=== PATIENT | female | born 1965 | race Caucasian/White ===

== ENCOUNTER 2017-01-30 21:35 | Emergency (ER) | payer MEDICARE, OTHER ==
[~2017-01-30] VITALS: Ht 162.6 cm; Wt 113.6 kg
[~2017-01-30 21:35] MED LIST: DIVA500T35 PO; ENAL20 PO; ESCI10TA PO; FLUP10 PO; GABA-531 PO; INSLAN SQ; INSREG SQ; LEVO100T4 PO; LOXA25 PO; OLAN10TA3 PO; RISPC50 IM; TOLT2TAB2 PO; VIST50 PO
[2017-01-31] MEDS ORDERED: INSULIN REGULAR, HUMAN 100 UNITS/ML IVP ONE ×2 (00:15→01:15)
[2017-01-31] MEDS ORDERED: SODIUM CHLORIDE 0.9% 2,000 ML IV ONE (00:15)
[2017-01-31 00:45] LABS: BASOPHILS % (AUTO) 0.3 % (0.0-2.0); EOSINOPHILS % (AUTO) 2.8 % (1.0-6.0); HEMATOCRIT 34.4 % (36-46); HEMOGLOBIN 11.9 g/dL (12.0-16.0); LYMPHOCYTES % (AUTO) 44.8 % (22.0-44.0); MEAN CORPUSCULAR HEMOGLOBIN 29.6 pg (26.0-34.0); MEAN CORPUSCULAR HGB CONC 34.6 G/dL (31.0-37.0); MEAN CORPUSCULAR VOLUME 86 fL (80-100); MONOCYTES # (AUTO) 0.5 K/uL (0.1-1.0); MONOCYTES % (AUTO) 7.8 % (2.0-9.0); NEUTROPHILS % (AUTO) 44.3 % (40.0-70.0); PLATELET COUNT (AUTO) 185 K/uL (150-450); RED BLOOD CELL COUNT(AUTO) 4.02 MIL/uL (4.00-5.20); RED CELL DISTRIBUTION WIDTH 13.2 % (11.5-14.5); WHITE BLOOD COUNT (AUTO) 6.8 K/uL (4.5-11.0)
[2017-01-31 00:57] LABS: ALANINE AMINOTRANSFERASE 16 U/L (12-78); ANION GAP 7 mmol/L (8-16); ASPARTATE AMINOTRANSFERASE < 5 U/L (15-37); BILIRUBIN,TOTAL 0.3 mg/dL (0.1-1.0); CALCIUM, TOTAL 8.2 mg/dL (8.8-10.5); CARBON DIOXIDE 31 mmol/L (22-29); CHLORIDE 96 mmol/L (98-107); CREATININE 1.38 mg/dL (0.60-1.30); GLOMERULAR FILTR. RATE CALC 40 mL/min (>60); POTASSIUM 4.5 mmol/L (3.5-5.1); SODIUM SERUM 134 mmol/L (136-145); TOTAL PROTEIN, SERUM 6.4 g/dL (6.4-8.2); UREA NITROGEN, BLOOD 17 mg/dL (7-18)
[2017-01-31 01:37] LABS: GLUCOSE,POINT OF CARE 336 MG/DL (70-110)
[2017-01-31 01:41] LABS: APPEARANCE,URINE CLEAR (CLEAR); GLUCOSE, URINE (UA) >=1000 mg/dL (NEGATIVE); KETONES,URINE NEGATIVE (NEGATIVE); LEUKOCYTE ESTERASE ,URINE NEGATIVE (NEGATIVE); OCCULT BLOOD,URINE NEGATIVE (NEGATIVE); PH,URINE 5.5 (5.0-8.0); PROTEIN,URINE NEGATIVE (NEGATIVE)
[2017-01-31 01:54] LABS: SQUAMOUS EPITHELIAL CELL,UR Few /LPF (None Seen)
[2017-01-31 01:56] LABS: RBC,URINE None Seen /HPF (0-2); WBC,URINE None Seen /HPF (0-5)
[2017-01-31 02:12] LABS: GLUCOSE,POINT OF CARE 291 MG/DL (70-110)
[2017-01-31 02:29] VITALS: BP 122/79
== END 2017-01-31 02:39 | disposition home or self-care (01) ==
LOC: EMS 21:38
DX: E11.65 Type 2 diabetes mellitus with hyperglycemia (principal); I10 Essential (primary) hypertension; E03.9 Hypothyroidism, unspecified; K21.9 Gastro-esophageal reflux disease without esophagitis; Z79.4 Long term (current) use of insulin
CPT/HCPCS: 36415; 80053; 80307; 81001; 82009; 82962; 83690; 84484; 85025; 93005; 96374; 96376; 99285; G0480; J1815; J7030

== ENCOUNTER 2017-03-13 15:59 | Emergency (ER) | payer MEDICARE, OTHER ==
[~2017-03-13] VITALS: Ht 162.6 cm; Wt 113.6 kg
[2017-03-13] MEDS ORDERED: PANT40TA25 PO (16:13)
[2017-03-13] MEDS ORDERED: KDUR20 PO (16:13)
[2017-03-13] MEDS ORDERED: FURO40 PO (16:13)
[2017-03-13] MEDS ORDERED: INSNOV SQ (16:13)
[2017-03-13 16:22] LABS: GLUCOSE COMMENT 2 Doctor Notified; GLUCOSE,POINT OF CARE 555 MG/DL (70-110)
[2017-03-13] MEDS ORDERED: INSULIN REGULAR, HUMAN 100 UNITS/ML IVP ONE ×3 (16:30→19:15)
[2017-03-13] MEDS ORDERED: SODIUM CHLORIDE 0.9% 1,000 ML IV ONE ×2 (16:30→19:15)
[2017-03-13 16:35] LABS: BASOPHILS # (AUTO) 0.03 K/uL (0.00-0.20); BASOPHILS % (AUTO) 0.6 % (0.0-2.0); EOSINOPHILS # (AUTO) 0.07 K/uL (0.00-0.70); EOSINOPHILS % (AUTO) 1.31 % (1.0-6.0); HEMATOCRIT 36.1 % (36-46); HEMOGLOBIN 12.4 g/dL (12.0-16.0); LYMPHOCYTES # (AUTO) 1.5 K/uL (1.0-4.8); LYMPHOCYTES % (AUTO) 29.8 % (22.0-44.0); MEAN CORPUSCULAR HGB CONC 34.2 G/dL (31.0-37.0); MEAN CORPUSCULAR VOLUME 88 fL (80-100); MONOCYTES # (AUTO) 0.5 K/uL (0.1-1.0); MONOCYTES % (AUTO) 9.4 % (2.0-9.0); NEUTROPHILS % (AUTO) 58.9 % (40.0-70.0); PLATELET COUNT (AUTO) 175 K/uL (150-450); RED BLOOD CELL COUNT(AUTO) 4.13 MIL/uL (4.00-5.20); RED CELL DISTRIBUTION WIDTH 14.5 % (11.5-14.5); WHITE BLOOD COUNT (AUTO) 5.2 K/uL (4.5-11.0)
[2017-03-13 16:55] LABS: ALANINE AMINOTRANSFERASE 11 U/L (12-78); ALBUMIN 2.9 g/dL (3.4-5.0); ANION GAP 8 mmol/L (8-16); ASPARTATE AMINOTRANSFERASE 7 U/L (15-37); BILIRUBIN,TOTAL 0.4 mg/dL (0.1-1.0); CALCIUM, TOTAL 8.6 mg/dL (8.8-10.5); CARBON DIOXIDE 29 mmol/L (22-29); CHLORIDE 98 mmol/L (98-107); GLOMERULAR FILTR. RATE CALC 30 mL/min (>60); POTASSIUM 5.1 mmol/L (3.5-5.1); SODIUM SERUM 135 mmol/L (136-145); TOTAL PROTEIN, SERUM 6.5 g/dL (6.4-8.2); UREA NITROGEN, BLOOD 15 mg/dL (7-18)
[2017-03-13 16:57] LABS: GLUCOSE COMMENT 2 Doctor Notified; GLUCOSE,POINT OF CARE 516 MG/DL (70-110)
[2017-03-13 17:30] LABS: APPEARANCE,URINE CLEAR (CLEAR); GLUCOSE, URINE (UA) >=1000 mg/dL (NEGATIVE); KETONES,URINE NEGATIVE (NEGATIVE); LEUKOCYTE ESTERASE ,URINE NEGATIVE (NEGATIVE); OCCULT BLOOD,URINE NEGATIVE (NEGATIVE); PH,URINE 6.5 (5.0-8.0); PROTEIN,URINE NEGATIVE (NEGATIVE)
[2017-03-13 17:32] LABS: RBC,URINE 0-2 /HPF (0-2); SQUAMOUS EPITHELIAL CELL,UR Few /LPF (None Seen); WBC,URINE 0-2 /HPF (0-5)
[2017-03-13 17:37] LABS: GLUCOSE,POINT OF CARE 525 MG/DL (70-110)
[2017-03-13] MEDS ORDERED: LOXA5 PO (18:08)
[2017-03-13 18:52] LABS: GLUCOSE COMMENT 2 Doctor Notified; GLUCOSE,POINT OF CARE 434 MG/DL (70-110)
[2017-03-13 19:44] VITALS: BP 117/72
[2017-03-13 20:02] LABS: GLUCOSE,POINT OF CARE 309 MG/DL (70-110)
== END 2017-03-13 20:12 | disposition home or self-care (01) ==
LOC: EMS 16:01
DX: E11.65 Type 2 diabetes mellitus with hyperglycemia (principal); E03.9 Hypothyroidism, unspecified; I10 Essential (primary) hypertension; F31.9 Bipolar disorder, unspecified; K21.9 Gastro-esophageal reflux disease without esophagitis; Z79.4 Long term (current) use of insulin
CPT/HCPCS: 36415; 80053; 80307; 81001; 82962; 84484; 85025; 93005; 96361; 96374; 96376; 99285; G0480; J1815; J7030

== ENCOUNTER → 2018-12-26 | Outpatient (CLI) | payer MEDICARE, OTHER ==
[~2018-12-26] MED LIST changes: +DIVA-78 PO; -DIVA500T35 PO; +FURO40 PO; +HYDR50CA10 PO; +INSNOV SQ; -INSREG SQ; +KDUR20 PO; -LOXA25 PO; +LOXA5 PO; +PANT40TA25 PO; -VIST50 PO
[2019-01-01 07:34] LABS: ALANINE AMINOTRANSFERASE 11 U/L (12-78); ALBUMIN 3.1 g/dL (3.4-5.0); ALKALINE PHOSPHATASE 106 U/L (46-116); ANION GAP 11 mmol/L (8-16); ASPARTATE AMINOTRANSFERASE 8 U/L (15-37); BILIRUBIN,TOTAL 0.3 mg/dL (0.1-1.0); CALCIUM, TOTAL 9.3 mg/dL (8.8-10.5); CARBON DIOXIDE 30 mmol/L (22-29); CHLORIDE 97 mmol/L (98-107); CREATININE 0.92 mg/dL (0.60-1.30); GLOMERULAR FILTR. RATE CALC > 60 mL/min (>60); GLUCOSE,RANDOM 106 mg/dL (70-110); POTASSIUM 4.9 mmol/L (3.5-5.1); SODIUM SERUM 138 mmol/L (136-145); TOTAL PROTEIN, SERUM 7.1 g/dL (6.4-8.2); UREA NITROGEN, BLOOD 11 mg/dL (7-18)
[2019-01-01 08:18] LABS: HEMATOCRIT 38.5 % (36-46); MEAN CORPUSCULAR HEMOGLOBIN 29.2 pg (26.0-34.0); MEAN CORPUSCULAR HGB CONC 33.8 G/dL (31.0-37.0); MEAN CORPUSCULAR VOLUME 86 fL (80-100); PLATELET COUNT (AUTO) 279 K/uL (150-450); RED BLOOD CELL COUNT(AUTO) 4.46 MIL/uL (4.00-5.20); RED CELL DISTRIBUTION WIDTH 13.9 % (11.5-14.5)
[2019-01-01 08:23] LABS: BAND NEUTROPHILS % (MANUAL) 7 % (0-5); BASOPHILS % (MANUAL) 1 % (0-2); EOSINOPHILS % (MANUAL) 3 % (1-6); LYMPHOCYTES % (MANUAL) 43 % (22-44); MONOCYTES % (MANUAL) 7 % (2-9); SEGMENTED NEUTROPHILS % 39 % (40-70)
== END | disposition home or self-care (01) ==
LOC: LABMN 15:30
PROVIDERS: ATTEND Psychiatry & Neurology Psychiatry
DX: F20.9 Schizophrenia, unspecified (principal)

== ENCOUNTER 2019-03-19 11:10 | Emergency (ER) | payer MEDICARE, OTHER ==
[~2019-03-19] VITALS: Ht 167.6 cm; Wt 118.2 kg
[2019-03-19] MEDS ORDERED: SODIUM CHLORIDE 0.9% 2,000 ML IV ONE (12:07)
[2019-03-19] MEDS ORDERED: INSU100V12 SQ (12:09)
[2019-03-19] MEDS ORDERED: GABA-531 PO (12:09)
[2019-03-19] MEDS ORDERED: INSULIN REGULAR, HUMAN 100 UNITS/ML IVP ONE ×2 (12:15→13:45)
[2019-03-19 12:27] LABS: BASOPHILS % (AUTO) 0.8 % (0.0-2.0); EOSINOPHILS % (AUTO) 2.7 % (1.0-6.0); HEMATOCRIT 37.3 % (36-46); HEMOGLOBIN 12.8 g/dL (12.0-16.0); LYMPHOCYTES # (AUTO) 1.8 K/uL (1.0-4.8); LYMPHOCYTES % (AUTO) 35.8 % (22.0-44.0); MEAN CORPUSCULAR HGB CONC 34.2 G/dL (31.0-37.0); MEAN CORPUSCULAR VOLUME 88 fL (80-100); MONOCYTES # (AUTO) 0.5 K/uL (0.1-1.0); MONOCYTES % (AUTO) 8.9 % (2.0-9.0); NEUTROPHILS # (AUTO) 2.7 K/uL (1.8-7.7); NEUTROPHILS % (AUTO) 51.8 % (40.0-70.0); PLATELET COUNT (AUTO) 186 K/uL (150-450); RED BLOOD CELL COUNT(AUTO) 4.25 MIL/uL (4.00-5.20); RED CELL DISTRIBUTION WIDTH 14.3 % (11.5-14.5)
[2019-03-19 12:44] LABS: BILIRUBIN,TOTAL 0.3 mg/dL (0.1-1.0); CREATININE 1.52 mg/dL (0.60-1.30); POTASSIUM 5.4 mmol/L (3.5-5.1); TOTAL PROTEIN, SERUM 6.8 g/dL (6.4-8.2)
[2019-03-19 13:35] LABS: GLUCOSE,POINT OF CARE 420 MG/DL (70-110)
[2019-03-19] MEDS ORDERED: ESCI20TA PO (13:41)
[2019-03-19] MEDS ORDERED: SODIUM CHLORIDE 0.9% 1,000 ML IV ONE (13:45)
[2019-03-19 15:25] LABS: GLUCOSE,POINT OF CARE 348 MG/DL (70-110)
[2019-03-19 15:28] LABS: APPEARANCE,URINE CLEAR (CLEAR); BILIRUBIN,URINE NEGATIVE (NEGATIVE); GLUCOSE, URINE (UA) >=1000 mg/dL (NEGATIVE); KETONES,URINE NEGATIVE (NEGATIVE); LEUKOCYTE ESTERASE ,URINE NEGATIVE (NEGATIVE); NITRATE,URINE NEGATIVE (NEGATIVE); OCCULT BLOOD,URINE NEGATIVE (NEGATIVE); PH,URINE 5.5 (5.0-8.0); PROTEIN,URINE NEGATIVE (NEGATIVE); UROBILINOGEN,URINE 0.2 mg/dL (<=1.0)
[2019-03-19 15:37] LABS: BACTERIA,URINE Rare /HPF (None Seen); RBC,URINE 0-2 /HPF (0-2); TRANSITIONAL EPI CELLS,URINE Few /LPF (None Seen); WBC,URINE 0-2 /HPF (0-5); YEAST,URINE Moderate /HPF (None Seen)
[2019-03-19 15:55] LABS: CALCIUM, TOTAL 8.2 mg/dL (8.8-10.5); CREATININE 1.28 mg/dL (0.60-1.30); POTASSIUM 5.1 mmol/L (3.5-5.1)
[2019-03-19 17:49] VITALS: BP 120/70
== END 2019-03-19 17:55 | disposition home or self-care (01) ==
LOC: EMS 11:11
DX: E11.65 Type 2 diabetes mellitus with hyperglycemia (principal); F41.9 Anxiety disorder, unspecified; F31.9 Bipolar disorder, unspecified; K21.9 Gastro-esophageal reflux disease without esophagitis; I10 Essential (primary) hypertension; E03.9 Hypothyroidism, unspecified; Z79.2 Long term (current) use of antibiotics; Z79.899 Other long term (current) drug therapy
CPT/HCPCS: 36415; 80048; 80053; 81001; 82009; 82962; 83690; 83880; 84484; 85025; 96361; 96374; 96376; 99283; J1815; J7030

== ENCOUNTER 2024-12-05 13:56 | Inpatient (IN) | payer MEDICARE, MEDICAID ==
[~2024-12-05] VITALS: Ht 175.3 cm; Wt 77.3 kg
[~2024-12-05 13:56] MED LIST changes: +ACET-2247 PO; +ALEN70TA80 PO; +ATOR40TA28 PO; +DIVA-112 PO; -DIVA-78 PO; +DULO60CA98 PO; +EMPA25TA3 PO; +ENAL-128 PO; -ENAL20 PO; +ESCI-8 PO; -ESCI10TA PO; +FAMO20 PO; +FENO160T14 PO; -FLUP10 PO; +FLUP10TA28 PO; +FLUT1BLS3 IH; -FURO40 PO; +GABA-1181 PO; -GABA-531 PO; -HYDR50CA10 PO; +HYDR50CA7 PO; +ICOS1CAP PO; -INSNOV SQ; +INSU100I47 SQ; -KDUR20 PO; +LACO50TA6 PO; +LEVE250T81 PO; +LEVO100 PO; -LEVO100T4 PO; -LOXA5 PO; -OLAN10TA3 PO; +OLAN10TA74 PO; +OXYB-34 PO; +PANT-31 PO; -PANT40TA25 PO; +POTA-206 PO; -RISPC50 IM
[2024-12-05 14:32] LABS: BASOPHILS % (AUTO) 0.6 % (0.0-2.0); EOSINOPHILS % (AUTO) 4.1 % (1.0-6.0); HEMATOCRIT 38.1 % (36-46); HEMOGLOBIN 12.7 g/dL (12.0-16.0); LYMPHOCYTES # (AUTO) 1.5 K/uL (1.0-4.8); LYMPHOCYTES % (AUTO) 32.3 % (22.0-44.0); MEAN CORPUSCULAR HEMOGLOBIN 28.4 pg (26.0-34.0); MEAN CORPUSCULAR HGB CONC 33.4 G/dL (31.0-37.0); MEAN CORPUSCULAR VOLUME 85 fL (80-100); MONOCYTES # (AUTO) 0.4 K/uL (0.1-1.0); MONOCYTES % (AUTO) 7.7 % (2.0-9.0); NEUTROPHILS # (AUTO) 2.6 K/uL (1.8-7.7); NEUTROPHILS % (AUTO) 55.3 % (40.0-70.0); PLATELET COUNT (AUTO) 260 K/uL (150-450); RED BLOOD CELL COUNT(AUTO) 4.48 MIL/uL (4.00-5.20); WHITE BLOOD COUNT (AUTO) 4.6 K/uL (4.5-11.0)
[2024-12-05 14:32] LABS: COVID AG,FIA SOURCE NASAL SWAB
[2024-12-05 14:38] LABS: ANION GAP 9 mmol/L (8-16); CALCIUM, TOTAL 9.2 mg/dL (8.8-10.5); CARBON DIOXIDE 28 mmol/L (22-29); CHLORIDE 103 mmol/L (98-107); CREATININE 0.79 mg/dL (0.60-1.30); GLOMERULAR FILTR. RATE CALC > 60 mL/min (>60); GLUCOSE,RANDOM 166 mg/dL (70-110); POTASSIUM 3.8 mmol/L (3.5-5.1); SODIUM SERUM 140 mmol/L (136-145); UREA NITROGEN, BLOOD 21 mg/dL (7-18)
[2024-12-05 14:57] LABS: ALCOHOL, BLOOD (SERUM) < 3 mg/dL (0-10)
[2024-12-05 15:00] LABS: SARS-COV2 (COVID) ANTIGEN,FIA Negative (Negative)
[2024-12-05 16:09] LABS: PH,URINE DRUG SCREEN 6.5 (5.0-8.0)
[2024-12-05 16:16] LABS: ALCOHOL, URINE DRUG SCREEN NEGATIVE (NEGATIVE); AMPHET/METH SCREEN,URINE NEGATIVE (NEGATIVE); BARBITURATE SCREEN, URINE NEGATIVE (NEGATIVE); BENZODIAZEPINES SCREEN,URINE NEGATIVE (NEGATIVE); CANNABINOID SCREEN,URINE NEGATIVE (NEGATIVE); COCAINE SCREEN,URINE NEGATIVE (NEGATIVE); METHADONE SCREEN, URINE NEGATIVE (NEGATIVE); OPIATE SCREEN,URINE NEGATIVE (NEGATIVE); PHENCYCLIDINE SCREEN,URINE NEGATIVE (NEGATIVE)
[2024-12-06 08:11] LABS: GLUCOMETER DEV NAME(LOC) ER.7; GLUCOSE,POINT OF CARE 207 MG/DL (70-110)
[2024-12-06] MEDS: INSULIN LISPRO 100 UNITS/ML SQ ONE (08:11)
[2024-12-06 08:35] LABS: HEMOGLOBIN A1C 7.4 % (3.8-5.6)
[2024-12-06 08:43] LABS: CHOLESTEROL 281 mg/dL (131-200); HDL CHOLESTEROL 56 mg/dL (40-60); TRIGLYCERIDES 476 mg/dL (15-150)
[2024-12-06 12:36] VITALS: BP 147/71; PULSE 67; RESP 18; TEMP 98.1; O2SAT 97
[2024-12-06] MEDS: ZINC OXIDE 16% PASTE 57 GM TUBE TP SCH (18:27)
[2024-12-06 20:00] VITALS: BP 134/54; PULSE 82; RESP 19; TEMP 97.8; O2SAT 98
[2024-12-06] MEDS: ZOLPIDEM TARTRATE 10 MG TABLET PO PRN (22:31)
[2024-12-07 05:00] VITALS: BP 128/62; PULSE 80; RESP 18; TEMP 98; O2SAT 100
[2024-12-07] MEDS ORDERED: DEXTROSE 50%-WATER 25 GM/50 ML SYRINGE IVP PRN (07:15)
[2024-12-07] MEDS ORDERED: oxyBUTYnin chloride 5 MG TABLET PO SCH (09:00)
[2024-12-07] MEDS: HYDROCORTISONE 2.5% 30 GM CREAM TP SCH (09:08)
[2024-12-07] MEDS: FLUTICASONE PROPIONATE 50 MCG/SPRAY 16 GM NASAL SPRAY NASAL SCH (09:08)
[2024-12-07] MEDS: ETHYL ALCOHOL 62% ANTISEPTIC NASAL SANITIZER 0.6 ML AMPUL NASAL SCH ×2 (09:08→20:19)
[2024-12-07] MEDS: LevETIRAcetam 250 MG TABLET PO SCH (09:09)
[2024-12-07] MEDS: LACOSAMIDE 50 MG TABLET PO SCH ×2 (09:09→16:22)
[2024-12-07] MEDS: PANTOPRAZOLE SODIUM 40 MG DR TABLET PO SCH ×2 (09:09→16:21)
[2024-12-07] MEDS: TOLTERODINE TARTRATE 2 MG ER CAPSULE PO SCH (09:09)
[2024-12-07 10:35] VITALS: BP 140/83; PULSE 90; RESP 18; TEMP 97.5; O2SAT 97
[2024-12-07] MEDS: INSULIN LISPRO 100 UNITS/ML SQ PRN (11:30)
[2024-12-07 11:40] LABS: GLUCOMETER DEV NAME(LOC) 3EX.2; GLUCOSE,POINT OF CARE 195 MG/DL (70-110)
[2024-12-07] MEDS: EMPAGLIFLOZIN 25 MG TABLET PO SCH (12:12)
[2024-12-07] MEDS: DULoxetine HCL 60 MG CAPSULE PO SCH (12:12)
[2024-12-07] MEDS: FAMOTIDINE 20 MG TABLET PO SCH (12:12)
[2024-12-07] MEDS: GABAPENTIN 300 MG CAPSULE PO SCH (16:21)
[2024-12-07] MEDS: TIMOLOL MALEATE 0.5% 5 ML OPHTHALMIC SOLUTION OU SCH (16:23)
[2024-12-07 17:16] LABS: GLUCOMETER DEV NAME(LOC) 3EX.2; GLUCOSE,POINT OF CARE 138 MG/DL (70-110)
[2024-12-07] MEDS: MELATONIN 5 MG TABLET PO SCH (20:17)
[2024-12-07] MEDS: DOCUSATE SODIUM 250 MG CAPSULE PO SCH (20:18)
[2024-12-07] MEDS: OLANZapine 10 MG TABLET PO SCH (20:18)
[2024-12-07] MEDS: PHENYTOIN SODIUM 100 MG ER CAPSULE PO SCH (20:18)
[2024-12-07] MEDS: ATORVASTATIN CALCIUM 40 MG TABLET PO SCH (20:18)
[2024-12-07] MEDS: FENOFIBRATE 160 MG TABLET PO SCH (20:18)
[2024-12-07 20:21] LABS: GLUCOMETER DEV NAME(LOC) 3EX.2; GLUCOSE,POINT OF CARE 183 MG/DL (70-110)
[2024-12-07 22:39] VITALS: BP 124/72; PULSE 78; RESP 18; TEMP 98.1; O2SAT 98
[2024-12-08] MEDS: LEVOTHYROXINE SODIUM 100 MCG TABLET PO SCH (06:34)
[2024-12-08 06:35] LABS: GLUCOMETER DEV NAME(LOC) 3EX.2; GLUCOSE,POINT OF CARE 139 MG/DL (70-110)
[2024-12-08 08:08] VITALS: BP 142/85; PULSE 89; RESP 18; TEMP 98.5; O2SAT 92
[2024-12-08] MEDS: PHENYTOIN SODIUM 100 MG ER CAPSULE PO SCH (09:04)
[2024-12-08] MEDS: PSYLLIUM SEED ORANGE SF 5.8 GM/PACKET PO SCH (09:09)
[2024-12-08 12:06] LABS: GLUCOMETER DEV NAME(LOC) 3EX.2; GLUCOSE,POINT OF CARE 153 MG/DL (70-110)
[2024-12-08] MEDS: HYDROCORTISONE 25 MG RECTAL SUPPOSITORY PR SCH (12:26)
[2024-12-08] MEDS: POLYETHYLENE GLYCOL 3350 17 GM PACKET PO SCH (12:33)
[2024-12-08 17:01] LABS: GLUCOMETER DEV NAME(LOC) 3EX.2; GLUCOSE,POINT OF CARE 239 MG/DL (70-110)
[2024-12-08 20:25] LABS: GLUCOMETER DEV NAME(LOC) 3EX.2; GLUCOSE,POINT OF CARE 338 MG/DL (70-110)
[2024-12-08 22:52] VITALS: BP 137/92; PULSE 115; RESP 18; TEMP 97.1; O2SAT 96
[2024-12-09 06:00] LABS: GLUCOMETER DEV NAME(LOC) 3EX.2; GLUCOSE,POINT OF CARE 222 MG/DL (70-110)
[2024-12-09 09:10] VITALS: BP 137/72; PULSE 64; RESP 18; TEMP 98.1; O2SAT 98
[2024-12-09] MEDS: PHENYTOIN 50 MG CHEWABLE TABLET PO ONE (09:34)
[2024-12-09 12:05] LABS: GLUCOMETER DEV NAME(LOC) 3EX.2; GLUCOSE,POINT OF CARE 342 MG/DL (70-110)
[2024-12-09 16:40] LABS: GLUCOMETER DEV NAME(LOC) 3EX.2; GLUCOSE,POINT OF CARE 289 MG/DL (70-110)
[2024-12-09 20:55] LABS: GLUCOMETER DEV NAME(LOC) 3EX.2; GLUCOSE,POINT OF CARE 244 MG/DL (70-110)
[2024-12-09 22:50] VITALS: BP 116/58; PULSE 111; RESP 17; TEMP 97.9; O2SAT 95
[2024-12-10 06:40] LABS: GLUCOMETER DEV NAME(LOC) 3EX.2; GLUCOSE,POINT OF CARE 257 MG/DL (70-110)
[2024-12-10 11:16] VITALS: BP 124/89; PULSE 91; RESP 18; TEMP 98.6; O2SAT 96
[2024-12-10 11:55] LABS: GLUCOMETER DEV NAME(LOC) 3EX.2; GLUCOSE,POINT OF CARE 221 MG/DL (70-110)
[2024-12-10 17:51] LABS: GLUCOMETER DEV NAME(LOC) 3EX.2; GLUCOSE,POINT OF CARE 261 MG/DL (70-110)
[2024-12-10 19:56] LABS: GLUCOMETER DEV NAME(LOC) 3EX.2; GLUCOSE,POINT OF CARE 315 MG/DL (70-110)
[2024-12-10 22:28] VITALS: BP 116/63; PULSE 78; RESP 19; TEMP 97.8; O2SAT 98
[2024-12-11 06:40] LABS: GLUCOMETER DEV NAME(LOC) 3EX.2; GLUCOSE,POINT OF CARE 262 MG/DL (70-110)
[2024-12-11 09:00] VITALS: BP 117/71; PULSE 74; TEMP 97
[2024-12-11 12:25] LABS: GLUCOMETER DEV NAME(LOC) 3EX.2; GLUCOSE,POINT OF CARE 312 MG/DL (70-110)
[2024-12-11 17:41] LABS: GLUCOMETER DEV NAME(LOC) 3EX.2; GLUCOSE,POINT OF CARE 256 MG/DL (70-110)
[2024-12-11 20:00] VITALS: BP 113/61; PULSE 95; RESP 18; TEMP 98; O2SAT 95
[2024-12-11 20:31] LABS: GLUCOMETER DEV NAME(LOC) 3EX.2; GLUCOSE,POINT OF CARE 309 MG/DL (70-110)
[2024-12-12 06:16] LABS: GLUCOMETER DEV NAME(LOC) 3EX.2; GLUCOSE,POINT OF CARE 326 MG/DL (70-110)
[2024-12-12] MEDS: ALENDRONATE SODIUM 70 MG TABLET PO SCH (06:33)
[2024-12-12 11:31] LABS: GLUCOMETER DEV NAME(LOC) 3EX.2; GLUCOSE,POINT OF CARE 302 MG/DL (70-110)
[2024-12-12 15:41] VITALS: BP 151/85; PULSE 91; RESP 17; TEMP 97.5; O2SAT 100
[2024-12-12 17:05] LABS: GLUCOMETER DEV NAME(LOC) 3E.I 2; GLUCOSE,POINT OF CARE 272 MG/DL (70-110)
[2024-12-12 20:10] LABS: GLUCOMETER DEV NAME(LOC) 3EX.2; GLUCOSE,POINT OF CARE 363 MG/DL (70-110)
[2024-12-12 21:17] VITALS: BP 137/76; PULSE 94; RESP 18; TEMP 97; O2SAT 94
[2024-12-13 06:55] LABS: GLUCOMETER DEV NAME(LOC) 3EX.2; GLUCOSE,POINT OF CARE 342 MG/DL (70-110)
[2024-12-13 08:00] VITALS: BP 117/73; PULSE 82; RESP 18; TEMP 97.9; O2SAT 95
[2024-12-13] MEDS: LORazepam 2 MG TABLET PO PRN (10:13)
[2024-12-13] MEDS: QUEtiapine FUMARATE 100 MG TABLET PO PRN (10:14)
[2024-12-13 12:00] LABS: GLUCOMETER DEV NAME(LOC) 3EX.2; GLUCOSE,POINT OF CARE 398 MG/DL (70-110)
[2024-12-13 17:56] LABS: GLUCOMETER DEV NAME(LOC) 3EX.2; GLUCOSE,POINT OF CARE 381 MG/DL (70-110)
[2024-12-13 20:26] LABS: GLUCOMETER DEV NAME(LOC) 3EX.2; GLUCOSE,POINT OF CARE 449 MG/DL (70-110)
[2024-12-13 21:20] VITALS: RESP 18; TEMP 97.6
[2024-12-13 21:41] VITALS: TEMP 97.6
[2024-12-14 06:00] LABS: GLUCOMETER DEV NAME(LOC) 3EX.2; GLUCOSE,POINT OF CARE 312 MG/DL (70-110)
[2024-12-14 11:32] VITALS: BP 116/84; PULSE 100; RESP 18; TEMP 97; O2SAT 97
[2024-12-14 11:51] LABS: GLUCOMETER DEV NAME(LOC) 3EX.2; GLUCOSE,POINT OF CARE 438 MG/DL (70-110)
[2024-12-14] MEDS: INSULIN LISPRO 100 UNITS/ML SQ ONE (11:54)
[2024-12-14 17:20] LABS: GLUCOMETER DEV NAME(LOC) 3EX.2; GLUCOSE,POINT OF CARE 410 MG/DL (70-110)
[2024-12-14] MEDS: MetFORMIN HCL 500 MG TABLET PO SCH (18:05)
[2024-12-14 20:44] VITALS: BP 115/65; PULSE 104; TEMP 98; O2SAT 96
[2024-12-14 21:06] LABS: GLUCOMETER DEV NAME(LOC) 3EX.2; GLUCOSE,POINT OF CARE 377 MG/DL (70-110)
[2024-12-15 06:36] LABS: GLUCOMETER DEV NAME(LOC) 3EX.2; GLUCOSE,POINT OF CARE 372 MG/DL (70-110)
[2024-12-15 07:51] LABS: BASOPHILS % (AUTO) 0.3 % (0.0-2.0); EOSINOPHILS % (AUTO) 5.3 % (1.0-6.0); HEMATOCRIT 40.3 % (36-46); HEMOGLOBIN 13.6 g/dL (12.0-16.0); LYMPHOCYTES # (AUTO) 1.6 K/uL (1.0-4.8); LYMPHOCYTES % (AUTO) 28.3 % (22.0-44.0); MEAN CORPUSCULAR HEMOGLOBIN 28.8 pg (26.0-34.0); MEAN CORPUSCULAR HGB CONC 33.6 G/dL (31.0-37.0); MEAN CORPUSCULAR VOLUME 86 fL (80-100); MONOCYTES # (AUTO) 0.3 K/uL (0.1-1.0); MONOCYTES % (AUTO) 5.7 % (2.0-9.0); NEUTROPHILS # (AUTO) 3.3 K/uL (1.8-7.7); NEUTROPHILS % (AUTO) 60.4 % (40.0-70.0); PLATELET COUNT (AUTO) 224 K/uL (150-450); RED CELL DISTRIBUTION WIDTH 14.3 % (11.5-14.5); WHITE BLOOD COUNT (AUTO) 5.5 K/uL (4.5-11.0)
[2024-12-15 08:25] VITALS: BP 115/66; PULSE 80; RESP 18; TEMP 97.9; O2SAT 96
== END 2024-12-15 10:38 | disposition short-term general hospital (02) | DRG 885 ==
LOC: EMS 13:59 → 3EI 12-06 12:46 → 5S 12-15 10:05 → 3EI 12-15 10:18
PROVIDERS: ADMIT Psychiatry & Neurology Psychiatry; ATTEND Psychiatry & Neurology Psychiatry
PROC: GZHZZZZ Group Psychotherapy (ICD-10-PCS; principal; 2024-12-06)
PROC: GZ51ZZZ Individual Psychotherapy, Behavioral (ICD-10-PCS; 2024-12-06)
DX: F25.0 Schizoaffective disorder, bipolar type (principal); G81.94 Hemiplegia, unspecified affecting left nondominant side; E03.9 Hypothyroidism, unspecified; E11.40 Type 2 diabetes mellitus with diabetic neuropathy, unspecified; E78.5 Hyperlipidemia, unspecified; G40.909 Epilepsy, unspecified, not intractable, without status epilepticus; G47.00 Insomnia, unspecified; Z20.822 Contact with and (suspected) exposure to COVID-19; I25.10 Atherosclerotic heart disease of native coronary artery without angina pectoris; F41.9 Anxiety disorder, unspecified; J44.9 Chronic obstructive pulmonary disease, unspecified; K21.9 Gastro-esophageal reflux disease without esophagitis; I10 Essential (primary) hypertension; G62.9 Polyneuropathy, unspecified; M81.0 Age-related osteoporosis without current pathological fracture; Z79.899 Other long term (current) drug therapy
CPT/HCPCS: 80048; 80061; 80185; 80307; 82962; 83036; 84703; 85025; 87081; 92610; 99285; G0480; J1815

== ENCOUNTER 2025-04-01 15:13 | Inpatient (IN) | payer MEDICARE, MEDICAID ==
[~2025-04-01] VITALS: Ht 162.6 cm; Wt 109.1 kg
[~2025-04-01 15:13] MED LIST changes: +DULO60CA73 PO; -DULO60CA98 PO; -ESCI-8 PO; -FLUP10TA28 PO; +LACO50 PO; -LACO50TA6 PO; -TOLT2TAB2 PO
[2025-04-01 16:32] LABS: PLATELET COUNT (AUTO) 341 K/uL (150-450); RED BLOOD CELL COUNT(AUTO) 4.27 MIL/uL (4.00-5.20); RED CELL DISTRIBUTION WIDTH 14.6 % (11.5-14.5); WHITE BLOOD COUNT (AUTO) 5.2 K/uL (4.5-11.0)
[2025-04-01 16:37] LABS: APPEARANCE,URINE CLEAR (CLEAR); GLUCOSE, URINE (UA) >=1000 mg/dL (NEGATIVE); LEUKOCYTE ESTERASE ,URINE NEGATIVE (NEGATIVE); NITRATE,URINE NEGATIVE (NEGATIVE); OCCULT BLOOD,URINE NEGATIVE (NEGATIVE); PH,URINE DRUG SCREEN 6.5 (5.0-8.0); SPECIFIC GRAVITIY, URINE 1.013 (1.003-1.030)
[2025-04-01 16:38] LABS: CALCIUM, TOTAL 8.7 mg/dL (8.8-10.5); CREATININE 1.19 mg/dL (0.60-1.30); GLOMERULAR FILTR. RATE CALC 46.0 mL/min (>60); GLUCOSE,RANDOM 194.0 mg/dL (70-110); SODIUM SERUM 132.0 mmol/L (136-145); UREA NITROGEN, BLOOD 21.0 mg/dL (7-18)
[2025-04-01 16:44] LABS: ALCOHOL, URINE DRUG SCREEN NEGATIVE (NEGATIVE); AMPHET/METH SCREEN,URINE NEGATIVE (NEGATIVE); BARBITURATE SCREEN, URINE NEGATIVE (NEGATIVE); CANNABINOID SCREEN,URINE NEGATIVE (NEGATIVE); COCAINE SCREEN,URINE NEGATIVE (NEGATIVE); METHADONE SCREEN, URINE NEGATIVE (NEGATIVE)
[2025-04-01 16:57] LABS: SQUAMOUS EPITHELIAL CELL,UR Rare /LPF (None Seen); YEAST,URINE Rare /HPF (None Seen)
[2025-04-01 17:57] LABS: COVID AG,FIA SOURCE NASAL SWAB
[2025-04-01 18:38] LABS: SARS-COV2 (COVID) ANTIGEN,FIA Negative (Negative)
[2025-04-01] MEDS: MELATONIN 5 MG TABLET PO ONE (22:21)
[2025-04-02 08:00] VITALS: O2SAT 98
[2025-04-02] MEDS ORDERED: GLUCAGON,HUMAN RECOMBINANT 1 MG VIAL IM PRN (13:45)
[2025-04-02] MEDS ORDERED: LOPERAMIDE HCL 2 MG CAPSULE PO PRN (13:45)
[2025-04-02] MEDS ORDERED: PETROLATUM,WHITE 28 GM JELLY TP PRN (13:45)
[2025-04-02] MEDS ORDERED: GuaiFENesin/D-METHORPHAN [SUGAR-FREE] 200-20MG/10 ML SYRUP UDCUP PO PRN (13:45)
[2025-04-02] MEDS ORDERED: ONDANSETRON 4 MG TABLET PO PRN (13:45)
[2025-04-02] MEDS ORDERED: ALBUTEROL SULFATE HFA 90 MCG/PUFF 8 GM INHALER IH PRN (13:45)
[2025-04-02] MEDS ORDERED: ACETAMINOPHEN 325 MG TABLET PO PRN (13:45)
[2025-04-02] MEDS ORDERED: MAGNESIUM HYDROXIDE SUSPENSION 30 ML UDCUP PO PRN (13:45)
[2025-04-02] MEDS ORDERED: NICOTINE 14 MG/24 HOUR PATCH TD PRN (13:45)
[2025-04-02] MEDS ORDERED: DOCUSATE SODIUM 100 MG CAPSULE PO PRN (13:45)
[2025-04-02] MEDS ORDERED: MAG HYDROX/ALUMINUM HYD/SIMETH ES 30 ML SUSPENSION UDCUP PO PRN (13:45)
[2025-04-02] MEDS ORDERED: INSULIN LISPRO 100 UNITS/ML SQ PRN (13:45)
[2025-04-02] MEDS ORDERED: DEXTROSE 50%-WATER 25 GM/50 ML SYRINGE IVP PRN (14:30)
[2025-04-02] MEDS: PANTOPRAZOLE SODIUM 40 MG DR TABLET PO SCH (16:32)
[2025-04-02 16:46] VITALS: BP 136/73; PULSE 95; RESP 18; TEMP 98.2; O2SAT 98
[2025-04-02] MEDS ORDERED: [UNRECOGNIZED DRUG - OTHER] PO SCH (17:00)
[2025-04-02 17:41] LABS: GLUCOMETER DEV NAME(LOC) 3EX.2; GLUCOSE,POINT OF CARE 279 MG/DL (70-110)
[2025-04-02] MEDS: INSULIN LISPRO 100 UNITS/ML SQ PRN (17:51)
[2025-04-02 20:27] VITALS: BP 108/60; PULSE 84; RESP 19; TEMP 98.3; O2SAT 96
[2025-04-02 21:36] LABS: GLUCOMETER DEV NAME(LOC) 3EX.2; GLUCOSE,POINT OF CARE 265 MG/DL (70-110)
[2025-04-03] MEDS: ZOLPIDEM TARTRATE 10 MG TABLET PO PRN (02:34)
[2025-04-03 06:50] LABS: PLATELET COUNT (AUTO) 299 K/uL (150-450); RED BLOOD CELL COUNT(AUTO) 4.21 MIL/uL (4.00-5.20); RED CELL DISTRIBUTION WIDTH 14.6 % (11.5-14.5); WHITE BLOOD COUNT (AUTO) 4.9 K/uL (4.5-11.0)
[2025-04-03] MEDS: LEVOTHYROXINE SODIUM 100 MCG TABLET PO SCH (06:52)
[2025-04-03 06:56] LABS: GLUCOMETER DEV NAME(LOC) 3EX.2; GLUCOSE,POINT OF CARE 269 MG/DL (70-110)
[2025-04-03 07:33] LABS: ASPARTATE AMINOTRANSFERASE 14.0 U/L (15-37); CALCIUM, TOTAL 8.9 mg/dL (8.8-10.5); CREATININE 1.27 mg/dL (0.60-1.30); GLOMERULAR FILTR. RATE CALC 43.0 mL/min (>60); GLUCOSE,RANDOM 267.0 mg/dL (70-110); SODIUM SERUM 133.0 mmol/L (136-145); TOTAL PROTEIN, SERUM 6.6 g/dL (6.4-8.2); UREA NITROGEN, BLOOD 24.0 mg/dL (7-18)
[2025-04-03 07:46] LABS: CHOL/HDL RATIO 5.0 (3.9-5.7); LDL CHOL (CALC.) 103.0 mg/dL (0-130)
[2025-04-03] MEDS: ENALAPRIL MALEATE 20 MG TABLET PO SCH (08:13)
[2025-04-03] MEDS: OXYBUTYNIN CHLORIDE 5 MG ER TABLET PO SCH (08:14)
[2025-04-03] MEDS: FENOFIBRATE 160 MG TABLET PO SCH (08:14)
[2025-04-03] MEDS: EMPAGLIFLOZIN 25 MG TABLET PO SCH (08:14)
[2025-04-03] MEDS: ATORVASTATIN CALCIUM 40 MG TABLET PO SCH (08:14)
[2025-04-03] MEDS ORDERED: MISC MED-CONVERTED FROM AMBULATORY (Fluticasone/Umeclidin/Vilanter (Trelegy Ellipta 100-62 IH SCH (09:00)
[2025-04-03 09:58] VITALS: BP 124/75; PULSE 88; RESP 19; TEMP 97.9; O2SAT 96
[2025-04-03 12:06] LABS: GLUCOMETER DEV NAME(LOC) 3EX.2; GLUCOSE,POINT OF CARE 196 MG/DL (70-110)
[2025-04-03] MEDS: DULoxetine HCL 60 MG CAPSULE PO SCH (14:15)
[2025-04-03 17:11] LABS: GLUCOMETER DEV NAME(LOC) 3EX.2; GLUCOSE,POINT OF CARE 240 MG/DL (70-110)
[2025-04-03 21:06] LABS: GLUCOMETER DEV NAME(LOC) 3EX.2; GLUCOSE,POINT OF CARE 299 MG/DL (70-110)
[2025-04-03] MEDS: ETHYL ALCOHOL 62% ANTISEPTIC NASAL SANITIZER 0.6 ML AMPUL NASAL SCH (21:18)
[2025-04-03] MEDS: MELATONIN 5 MG TABLET PO SCH (21:18)
[2025-04-04 07:01] LABS: GLUCOMETER DEV NAME(LOC) 3EX.2; GLUCOSE,POINT OF CARE 288 MG/DL (70-110)
[2025-04-04 11:19] VITALS: BP 99/72; PULSE 76; RESP 18; TEMP 98; O2SAT 98
[2025-04-04 11:46] LABS: GLUCOMETER DEV NAME(LOC) 3EX.2; GLUCOSE,POINT OF CARE 360 MG/DL (70-110)
[2025-04-04 17:41] LABS: GLUCOMETER DEV NAME(LOC) 3EX.2; GLUCOSE,POINT OF CARE 268 MG/DL (70-110)
[2025-04-04 20:26] LABS: GLUCOMETER DEV NAME(LOC) 3EX.2; GLUCOSE,POINT OF CARE 349 MG/DL (70-110)
[2025-04-04 20:39] VITALS: BP 115/73; PULSE 81; RESP 18; TEMP 98.1
[2025-04-04] MEDS: IBUPROFEN 400 MG TABLET PO PRN (20:39)
[2025-04-05 05:31] LABS: GLUCOMETER DEV NAME(LOC) 3EX.2; GLUCOSE,POINT OF CARE 253 MG/DL (70-110)
[2025-04-05 10:42] VITALS: BP 114/81; PULSE 100; RESP 18; TEMP 97.9; O2SAT 98
[2025-04-05 11:45] LABS: GLUCOMETER DEV NAME(LOC) 3EX.2; GLUCOSE,POINT OF CARE 414 MG/DL (70-110)
[2025-04-05] MEDS: INSULIN LISPRO 100 UNITS/ML SQ ONE (11:57)
[2025-04-05 17:31] LABS: GLUCOMETER DEV NAME(LOC) 3EX.2; GLUCOSE,POINT OF CARE 260 MG/DL (70-110)
[2025-04-05 20:50] VITALS: RESP 18
[2025-04-05 21:40] LABS: GLUCOMETER DEV NAME(LOC) 3EX.2; GLUCOSE,POINT OF CARE 332 MG/DL (70-110)
[2025-04-06 07:01] LABS: GLUCOMETER DEV NAME(LOC) 3EX.2; GLUCOSE,POINT OF CARE 346 MG/DL (70-110)
[2025-04-06 09:51] VITALS: BP 104/55; PULSE 93; RESP 18; TEMP 98.6; O2SAT 98
[2025-04-06 11:40] LABS: GLUCOMETER DEV NAME(LOC) 3EX.2; GLUCOSE,POINT OF CARE 268 MG/DL (70-110)
[2025-04-06 17:00] LABS: GLUCOMETER DEV NAME(LOC) 3EX.2; GLUCOSE,POINT OF CARE 351 MG/DL (70-110)
[2025-04-06 19:51] LABS: GLUCOMETER DEV NAME(LOC) 3EX.2; GLUCOSE,POINT OF CARE 328 MG/DL (70-110)
[2025-04-06] MEDS: INSULIN GLARGINE,HUM.REC.ANLOG 100 UNITS/ML SQ SCH (21:28)
[2025-04-06 21:50] VITALS: BP 106/67; PULSE 89; RESP 18; TEMP 98.2; O2SAT 99
[2025-04-07 05:26] LABS: GLUCOMETER DEV NAME(LOC) 3EX.2; GLUCOSE,POINT OF CARE 322 MG/DL (70-110)
[2025-04-07 09:09] VITALS: BP 108/52; PULSE 84; RESP 17; TEMP 98; O2SAT 100
[2025-04-07 11:40] LABS: GLUCOMETER DEV NAME(LOC) 3EX.2; GLUCOSE,POINT OF CARE 272 MG/DL (70-110)
[2025-04-07 17:26] LABS: GLUCOMETER DEV NAME(LOC) 3EX.2; GLUCOSE,POINT OF CARE 249 MG/DL (70-110)
[2025-04-07 20:10] VITALS: BP 111/72; PULSE 89; RESP 18; TEMP 98; O2SAT 99
[2025-04-07 20:41] LABS: GLUCOMETER DEV NAME(LOC) 3EX.2; GLUCOSE,POINT OF CARE 312 MG/DL (70-110)
[2025-04-08 06:15] LABS: GLUCOMETER DEV NAME(LOC) 3EX.2; GLUCOSE,POINT OF CARE 329 MG/DL (70-110)
[2025-04-08 10:30] VITALS: BP 104/78; PULSE 95; RESP 18; TEMP 97.6; O2SAT 95
[2025-04-08 11:45] LABS: GLUCOMETER DEV NAME(LOC) 3EX.2; GLUCOSE,POINT OF CARE 375 MG/DL (70-110)
[2025-04-08 17:26] LABS: GLUCOMETER DEV NAME(LOC) 3EX.2; GLUCOSE,POINT OF CARE 395 MG/DL (70-110)
[2025-04-08 20:00] VITALS: BP 123/98; PULSE 100; RESP 19; TEMP 97.8; O2SAT 97
[2025-04-08 20:40] LABS: GLUCOMETER DEV NAME(LOC) 3EX.2; GLUCOSE,POINT OF CARE 327 MG/DL (70-110)
[2025-04-08] MEDS: INSULIN GLARGINE,HUM.REC.ANLOG 100 UNITS/ML SQ SCH (21:44)
[2025-04-09 06:25] LABS: GLUCOMETER DEV NAME(LOC) 3EX.2; GLUCOSE,POINT OF CARE 269 MG/DL (70-110)
[2025-04-09] MEDS: ALENDRONATE SODIUM 70 MG TABLET PO SCH (06:57)
[2025-04-09 08:29] VITALS: BP 102/56; PULSE 89; RESP 16; TEMP 98.3; O2SAT 97
[2025-04-09] MEDS: OMEGA-3/DHA/EPA/FISH OIL 1,000 MG CAPSULE PO SCH (08:58)
[2025-04-09 12:10] LABS: GLUCOMETER DEV NAME(LOC) 3EX.2; GLUCOSE,POINT OF CARE 254 MG/DL (70-110)
[2025-04-09 17:36] LABS: GLUCOMETER DEV NAME(LOC) 3EX.2; GLUCOSE,POINT OF CARE 198 MG/DL (70-110)
[2025-04-09 20:25] LABS: GLUCOMETER DEV NAME(LOC) 3EX.2; GLUCOSE,POINT OF CARE 264 MG/DL (70-110)
[2025-04-09 21:58] VITALS: BP 120/60; PULSE 89; RESP 16; TEMP 98.5; O2SAT 99
[2025-04-10 06:31] LABS: GLUCOMETER DEV NAME(LOC) 3EX.2; GLUCOSE,POINT OF CARE 244 MG/DL (70-110)
[2025-04-10 10:41] VITALS: RESP 18
[2025-04-10 11:40] LABS: GLUCOMETER DEV NAME(LOC) 3EX.2; GLUCOSE,POINT OF CARE 258 MG/DL (70-110)
[2025-04-10 17:10] LABS: GLUCOMETER DEV NAME(LOC) 3EX.2; GLUCOSE,POINT OF CARE 249 MG/DL (70-110)
[2025-04-10] MEDS ORDERED: OMEG100033 PO (17:53)
[2025-04-10] MEDS ORDERED: MELA5TAB40 PO (17:56)
== END 2025-04-10 20:10 | DRG 885 ==
LOC: EMS 15:14 → 3EI 04-02 13:49
PROVIDERS: ADMIT Psychiatry & Neurology Psychiatry; ATTEND Psychiatry & Neurology Psychiatry
PROC: GZHZZZZ Group Psychotherapy (ICD-10-PCS; principal; 2025-04-03)
PROC: GZ52ZZZ Individual Psychotherapy, Cognitive (ICD-10-PCS; 2025-04-03)
DX: F25.0 Schizoaffective disorder, bipolar type (principal); G81.94 Hemiplegia, unspecified affecting left nondominant side; E03.9 Hypothyroidism, unspecified; I10 Essential (primary) hypertension; J44.9 Chronic obstructive pulmonary disease, unspecified; G40.909 Epilepsy, unspecified, not intractable, without status epilepticus; E11.40 Type 2 diabetes mellitus with diabetic neuropathy, unspecified; Z20.822 Contact with and (suspected) exposure to COVID-19; F41.9 Anxiety disorder, unspecified; I25.10 Atherosclerotic heart disease of native coronary artery without angina pectoris; K21.9 Gastro-esophageal reflux disease without esophagitis; G47.00 Insomnia, unspecified; E78.5 Hyperlipidemia, unspecified; Z74.01 Bed confinement status; Z79.4 Long term (current) use of insulin; Z79.899 Other long term (current) drug therapy
CPT/HCPCS: 80048; 80053; 80061; 80307; 81001; 82947; 82948; 82962; 83036; 84443; 85025; 87081; 99285; G0480; J1815